=== PATIENT | male | born 1980 | race Caucasian/White ===

== ENCOUNTER 2024-06-13 06:18 | Day surgery (SDC) | payer BC, SELFPAY ==
[2024-06-13 14:37] VITALS: BP 126/86
[2024-06-13 14:40] VITALS: BMI 45.6
[2024-06-13 14:41] VITALS: BMI 45.6
[2024-06-13 16:15] VITALS: BP 123/87
[2024-06-13 16:30] VITALS: BP 114/82
[2024-06-13 16:45] VITALS: BP 129/87
== END 2024-06-13 16:58 | disposition home or self-care (01) ==
LOC: GI 06:18
PROVIDERS: ATTENDING PHYSICIAN Internal Medicine Gastroenterology
DX: Z12.11 Encounter for screening for malignant neoplasm of colon (principal); K62.1 Rectal polyp
CPT/HCPCS: 45385; 45380; 88305